=== PATIENT | female | born 1995 | race African-American/Black ===

== ENCOUNTER 2017-12-28 20:37 | Emergency (ER) | payer BC ==
[~2017-12-28] VITALS: Ht 160 cm; Wt 61.2 kg
[2017-12-28 20:46] VITALS: Ht 160 cm; Wt 61.2 kg
[2017-12-28] MEDS ORDERED: ALBUT/IPRATROP 3MG/0.5MG NEB 3 ML VIAL INH STA (21:45)
[2017-12-28 22:28] LABS: INFLUENZA B ANTIGEN Neg for Influ B (NEG)
--- NOTE | 2017-12-28 22:37 | DIAGNOSTIC IMAGING REPORT ---
CHEST 2 VIEWS ROUTINE HISTORY: cough, illness COMPARISON: None. FINDINGS: The lungs are clear. Cardiac silhouette is normal in size. No pleural effusions. No pneumothorax. IMPRESSION: No acute process. Electronically signed by: Aki Montez M.D. 12/28/2017 10:36 PM Dictated Date/Time: 12/28/2017 10:35 PM
[2017-12-28 22:53] VITALS: TEMP 36.8
--- NOTE | 2017-12-28 22:56 | EMERGENCY ROOM VISIT NOTE ---
History First contact with patient: 21:34 Chief Complaint: ILLNESS Stated Complaint: PRESSURE IN HEAD, RUNNY NOSE, COUGH, CONGESTION History of Present Illness The patient is a 22 year old female who presents to the Emergency Room with complaints of cough and nasal congestion. The patient reports that she has had one week of cough and nasal congestion. She reports she had one episode of vomiting last night because her cough was so severe. She reports that she is losing her voice. She reports pressure in her head. She rates her overall discomfort a 5/10. She took NyQuil which did help slightly, but has not been taking anything recently for her symptoms. She did not receive a flu vaccine this year. She denies sore throat, earaches, abdominal pain, nausea or diarrhea. Review of Systems A complete 10 point review of systems was reviewed with the patient with pertinent positives and negatives as per history of present illness. All else were negative. Past Medical/Surgical History Medical Problems: (1) No significant past medical history Surgical Problems: (1) No significant past surgical history Family History Diabetes mellitus Hypertension Social History Smoking Status: Never Smoker Alcohol Use: occasionally Housing Status: lives with roommate Occupation Status: [employer] student Current/Historical Medications No Active Prescriptions or Reported Meds Physical Exam Vital Signs Date Time Temp Pulse Resp B/P (MAP) Pulse Ox O2 Delivery O2 Flow Rate FiO2 12/28/17 23:05 86 16 124/68 99 12/28/17 22:53 36.8 86 16 124/68 99 Room Air 12/28/17 20:46 36.8 90 20 129/73 98 Room Air Physical Exam VITALS: Vitals are noted on the nurse's note and reviewed by myself. Vital signs stable. GENERAL: This is a 22-year-old female, in no acute distress, nondiaphoretic, well-developed well-nourished. SKIN: The skin was without rashes. EARS: External auditory canals clear, tympanic membranes pearly buchanan without erythema or effusion bilaterally. EYES: Pupils equal round and reactive to light and accommodation. NOSE: Patent, turbinates without inflammation or discharge. No sinus tenderness. MOUTH: Mucous membranes moist. Tonsils are not enlarged. Pharynx without erythema or exudate. NECK: Supple without nuchal rigidity. No lymphadenopathy. HEART: Regular rate and rhythm without murmurs gallops or rubs. LUNGS: Clear to auscultation bilaterally without wheezes, rales or rhonchi. No retractions or accessory muscle use. NEURO: Patient was alert and oriented to person place and time. Medical Decision & Procedures ER Provider Diagnostic Interpretation: CHEST 2 VIEWS ROUTINE HISTORY: cough, illness COMPARISON: None. FINDINGS: The lungs are clear. Cardiac silhouette is normal in size. No pleural effusions. No pneumothorax. IMPRESSION: No acute process. Laboratory Results Test 12/28/17 21:55 Influenza Type A Antigen Neg for Influ A (NEG) Influenza Type B Antigen Neg for Influ B (NEG) Medications Administered Medications (Trade) Dose Ordered Sig/Maggie Route Start Time Stop Time Status Last Admin Dose Admin Albuterol/ Ipratropium (Duoneb) 3 ml NOW STAT INH 12/28/17 21:45 12/28/17 21:46 DC 12/28/17 21:57 3 ML Medical Decision Differential diagnosis includes viral URI, influenza, pneumonia, strep pharyngitis, otitis media, among others. The patient was evaluated as above. Chest x-ray was performed and shows no evidence of pneumonia. Influenza testing was negative. She was given a DuoNeb treatment. Patient's vital signs are stable. She likely has a viral upper respiratory infection. Conservative measures were discussed with the patient. She was encouraged to use [id number] medications for symptomatic relief. She will follow-up with [facility] as needed. She verbalized understanding of my assessment and treatment plan and was discharged home in good condition. Medication Reconcilliation Current Medication List: was personally reviewed by nd Blood Pressure Screening Patient's blood pressure: Normal blood pressure Impression Primary Impression: Upper respiratory infection Departure Information Dispostion Home / Self-Care Condition GOOD Prescriptions No Active Prescriptions or Reported Meds Referrals [facility] (PCP) Patient Instructions My [facility] Additional Instructions You should take Sudafed (pseudoephedrine) as directed on the package to help with congestion. This medication is [id number], but you do need to speak to the pharmacist to purchase it. You should use a steroid spray such as Flonase as directed on the package. Use msjq-[id number] cough medications to help with the cough. Be aware that some of these may be too drowsy. Make sure to rest and drink plenty of fluids. Follow-up with [facility] or a primary care provider for recheck. Return to the emergency department with difficulty breathing, coughing up large amounts of phlegm or blood, or any other new/symptoms. Problem Qualifiers Primary Impression: Upper respiratory infection URI type: unspecified URI Qualified Codes: J06.9 - Acute upper respiratory infection, unspecified
[2017-12-28 23:05] VITALS: BP 124/68; PULSE 86; O2SAT 99
== END 2017-12-28 23:05 | disposition home or self-care (01) ==
LOC: C.EDB 20:40 → C.EDC 23:05
DX: J06.9 Acute upper respiratory infection, unspecified (principal); Z82.49 Family history of ischemic heart disease and other diseases of the circulatory system; Z83.3 Family history of diabetes mellitus

== ENCOUNTER 2018-02-26 00:09 | Emergency (ER) | payer BC ==
[~2018-02-26] VITALS: Ht 160 cm; Wt 65.2 kg
[2018-02-26 00:21] VITALS: Ht 160 cm; Wt 65.2 kg
[2018-02-26] MEDS ORDERED: METOCLOPRAMIDE HCL INJ 5 MG/ML 2 ML VIAL IV STA (00:39)
[2018-02-26] MEDS ORDERED: KETOROLAC TROMETHAMINE 30 MG/ML VIAL IV STA (00:39)
[2018-02-26] MEDS ORDERED: SODIUM CHLORIDE 0.9% 1000ML 1,000 ML IV STA (00:39)
[2018-02-26] MEDS ORDERED: DiphenhydrAMINE HCL 50 MG/ML VIAL IV STA (00:39)
[2018-02-26 01:19] VITALS: O2SAT 97
[2018-02-26 01:33] LABS: HEMATOCRIT 39.3 % (37-47); HEMOGLOBIN 13.1 g/dL (12.0-16.0); MEAN CELL VOLUME 85.2 fL (80-100); MEAN CORPUSCULAR HEMOGLOBIN 28.4 pg (25-34); MEAN CORPUSCULAR HGB CONC 33.3 g/dl (32-36); MEAN PLATELET VOLUME 12.1 fL (7.4-10.4); PLATELET COUNT 201 K/uL (130-400); RED CELL DISTRIBUTION WIDTH CV 13.2 % (11.5-14.5); RED CELL DISTRIBUTION WIDTH SD 41.3 fL (36.4-46.3); WHITE BLOOD COUNT 7.83 K/uL (4.8-10.8)
[2018-02-26] MEDS ORDERED: IBUP-1050 PO (01:42)
[2018-02-26 01:47] LABS: ALBUMIN 3.8 gm/dl (3.4-5.0); CREATININE 0.7 mg/dl (0.60-1.20); POTASSIUM 3.9 mmol/L (3.5-5.1)
[2018-02-26 01:58] LABS: TOTAL PROTEIN 7.9 gm/dl (6.4-8.2)
[2018-02-26 02:02] LABS: INFLUENZA B ANTIGEN Neg for Influ B (NEG)
[2018-02-26 02:20] LABS: BASO % 0.4 %; BASO ABS # 0.03 K/uL (0-0.2); EOS % 1.9 %; EOS ABS # 0.15 K/uL (0-0.5); LYMPH % 53.1 %; LYMPH ABS # 4.16 K/uL (1.2-3.4); MONO % 6.9 %; MONO ABS # 0.54 K/uL (0.11-0.59); NEUT % 37.7 %; NEUT ABS # 2.95 K/uL (1.4-6.5)
[2018-02-26 02:21] LABS: MONOSPOT NEG (NEG)
--- NOTE | 2018-02-26 02:37 | EMERGENCY ROOM VISIT NOTE ---
History First contact with patient: 00:27 Chief Complaint: HEADACHE Stated Complaint: HERNANDEZ,NECK PAIN,TIREDNESS,NAUSEA History of Present Illness The patient is a 22 year old female who presents to the Emergency Room with complaints of headache, nausea, fatigue, body aches and cough for the past 3 weeks. Patient saw urgent care 1 week ago was diagnosed with a sinus infection started on amoxicillin. Health services gave her Motrin. No flu shot. No recent travel. Patient is tolerating p.o. fluids but has a lack of appetite. No history of mono. No recent sick contacts. Patient denies chest pain, dyspnea, neck stiffness, abdominal pain, vomiting, diarrhea, productive cough, sinus pain and congestion, earache. Review of Systems An 10 system review of systems was completed with positives and pertinent negatives listed in the HPI. Past Medical/Surgical History Medical Problems: (1) No significant past medical history Surgical Problems: (1) No significant past surgical history Family History Diabetes mellitus Hypertension Social History Smoking Status: Never Smoker Alcohol Use: occasionally Housing Status: lives with roommate Occupation Status: [employer] student Current/Historical Medications Scheduled PRN Ibuprofen (Advil), 400-600 MG PO Q6H PRN for Pain Physical Exam Vital Signs Date Time Temp Pulse Resp B/P (MAP) Pulse Ox O2 Delivery O2 Flow Rate FiO2 02/26/18 01:35 70 18 118/76 97 Room Air 02/26/18 01:34 66 02/26/18 01:19 97 Room Air 02/26/18 01:19 97 Room Air 02/26/18 00:21 37.0 79 18 137/88 99 Room Air Physical Exam VITALS: Vitals are noted on the nurse's note and reviewed by myself. Vital signs stable. GENERAL: Pleasant female, in no acute distress, nondiaphoretic, well-developed well-nourished. SKIN: The skin was without rashes, erythema, edema, or bruising. There is no tenting of the skin. Capillary reflex less than 2 seconds. HEAD: Normocephalic atraumatic. EARS: External auditory canals clear, tympanic membranes pearly buchanan without erythema or effusion bilaterally. EYES: Pupils equal round and reactive to light and accommodation. Conjunctivae without injection, sclerae without icterus. Extraocular movements intact. NOSE: Patent, turbinates without inflammation or discharge. No sinus tenderness. MOUTH: Mucous membranes moist. Pharynx without erythema or exudate. Uvula midline. Airway patent. Tongue does not deviate. NECK: Supple without nuchal rigidity. Shotty anterior and posterior lymphadenopathy. No thyromegaly. Cervical spine is nontender. No JVD. No meningeal signs HEART: Regular rate and rhythm without murmurs gallops or rubs. LUNGS: Clear to auscultation bilaterally without wheezes, rales or rhonchi. No retractions or accessory muscle use. ABDOMEN: Positive bowel sounds x 4. Normal tympanic percussion. Soft, nontender, without masses or organomegaly. Carranza sign negative. No guarding or rebound tenderness. No CVA tenderness MUSCULOSKELETAL: No muscle atrophy, erythema, or edema noted. NEURO: Patient was alert and oriented to person place and time. Normal sensation to light and sharp touch. No focal neurological deficits. Medical Decision & Procedures Laboratory Results 02/26/18 01:10 Red Blood Count 4.61, Mean Corpuscular Volume 85.2, Mean Corpuscular Hemoglobin 28.4, Mean Corpuscular Hemoglobin Concent 33.3, Mean Platelet Volume 12.1, Neutrophils (%) (Auto) 37.7, Lymphocytes (%) (Auto) 53.1, Monocytes (%) (Auto) 6.9, Eosinophils (%) (Auto) 1.9, Basophils (%) (Auto) 0.4, Neutrophils # (Auto) 2.95, Lymphocytes # (Auto) 4.16, Monocytes # (Auto) 0.54, Eosinophils # (Auto) 0.15, Basophils # (Auto) 0.03 02/26/18 01:10 Test 02/26/18 01:10 02/26/18 01:12 White Blood Count 7.83 K/uL (4.8-10.8) Red Blood Count 4.61 M/uL (4.2-5.4) Hemoglobin 13.1 g/dL (12.0-16.0) Hematocrit 39.3 % (37-47) Mean Corpuscular Volume 85.2 fL (80-100) Mean Corpuscular Hemoglobin 28.4 pg (25-34) Mean Corpuscular Hemoglobin Concent 33.3 g/dl (32-36) Platelet Count 201 K/uL (130-400) Mean Platelet Volume 12.1 fL (7.4-10.4) Neutrophils (%) (Auto) 37.7 % Lymphocytes (%) (Auto) 53.1 % Monocytes (%) (Auto) 6.9 % Eosinophils (%) (Auto) 1.9 % Basophils (%) (Auto) 0.4 % Neutrophils # (Auto) 2.95 K/uL (1.4-6.5) Lymphocytes # (Auto) 4.16 K/uL (1.2-3.4) Monocytes # (Auto) 0.54 K/uL (0.11-0.59) Eosinophils # (Auto) 0.15 K/uL (0-0.5) Basophils # (Auto) 0.03 K/uL (0-0.2) RDW Standard Deviation 41.3 fL (36.4-46.3) RDW Coefficient of Variation 13.2 % (11.5-14.5) Immature Granulocyte % (Auto) 0.0 % Immature Granulocyte # (Auto) 0.00 K/uL (0.00-0.02) Large Platelets 1+ Anion Gap 8.0 mmol/L (3-11) Est Creatinine Clear Calc Drug Dose 115.4 ml/min Estimated GFR () 143.5 Estimated GFR (Non- 123.9 BUN/Creatinine Ratio 18.8 (10-20) Calcium Level 9.0 mg/dl (8.5-10.1) Magnesium Level 1.9 mg/dl (1.8-2.4) Total Bilirubin 0.5 mg/dl (0.2-1) Direct Bilirubin 0.1 mg/dl (0-0.2) Aspartate Amino Transf (AST/SGOT) 22 U/L (15-37) Alanine Aminotransferase (ALT/SGPT) 37 U/L (12-78) Alkaline Phosphatase 55 U/L (45-117) Total Protein 7.9 gm/dl (6.4-8.2) Albumin 3.8 gm/dl (3.4-5.0) Thyroid Stimulating Hormone (TSH) 1.720 uIu/ml (0.300-4.500) Human Chorionic Gonadotropin, Qual NEG (NEG) Monoscreen NEG (NEG) Influenza Type A Antigen Neg for Influ A (NEG) Influenza Type B Antigen Neg for Influ B (NEG) Medications Administered Medications (Trade) Dose Ordered Sig/Maggie Route Start Time Stop Time Status Last Admin Dose Admin Sodium Chloride 1,000 ml @ 999 mls/hr Q1H1M STAT IV 02/26/18 00:39 02/26/18 01:39 DC 02/26/18 01:13 999 MLS/HR Ketorolac Tromethamine (Toradol Inj) 15 mg NOW STAT IV 02/26/18 00:39 02/26/18 00:41 DC 02/26/18 01:14 15 MG Metoclopramide HCl (Reglan Inj) 10 mg NOW STAT IV 02/26/18 00:39 02/26/18 00:41 DC 02/26/18 01:13 10 MG Diphenhydramine HCl (Benadryl Inj) 12.5 mg NOW STAT IV 02/26/18 00:39 02/26/18 00:41 DC 02/26/18 01:14 12.5 MG ED Course Prior records/ancillary studies reviewed and summarized above. Nursing notes reviewed. The patient's history was concerning for headache, fatigue, body aches. Differential diagnosis: Etiologies such as mono, metabolic, infection, hypo/hyperglycemia, electrolyte abnormalities, cardiac sources, intracerebral event, toxicologic, neurologic, as well as others were entertained. Physical examination: As above. ER treatment provided: IV Lock IV fluids, Toradol, Reglan, Benadryl On reassessment the patient felt better. Diagnostics interpretation by me: The labs revealed no worsening leukocytosis or electrolyte abnormality. Negative flu. Negative Monospot Imaging studies: Chest x-ray with no acute consolidation, pneumothorax free of my interpretation Exam and history seem consistent with headache and fatigue. Patient is neurovascularly and neurologically intact. She is well-appearing. No signs of meningitis. She is advised to rest, stay well-hydrated and to take medications as directed. She is advised to follow-up with health services in a few days here in the ER sooner for high fevers, lethargy, neck stiffness, worsening signs or symptoms or as needed. By the evaluation outlined above emergent etiologies such as infection, electrolyte abnormalities, cardiac sources, intracerebral event, toxologic, neurologic, abnormalities blood glucose, metabolic, as well as others were deemed relatively unlikely. The pt informed about the findings as listed above. All questions were answered and pleased with the treatment. Return instructions were outlined and the patient was discharged in stable condition. Referral: The patient was referred back to [facility]/primary care physician for follow-up in 2 to 3 days for a recheck of the current condition. The chart was completed utilizing [employer] voice recognition software. Grammatical errors, random word insertions, pronoun errors, and incomplete sentences are an occassional consequence of this system due to software limitations, ambient noise, and hardware issues. Any formal questions or concerns about the content, text, or information contained within the body of this dictation should be directly addressed to the physician records management assistant for clarification. Case reviewed with my attending Medical Decision as above Medication Reconcilliation Current Medication List: was personally reviewed by me Blood Pressure Screening Patient's blood pressure: Normal blood pressure Impression Primary Impression: Headache Additional Impression: Fatigue Departure Information Dispostion Home / Self-Care Condition GOOD Referrals [facility] (PCP) Patient Instructions My [facility] Additional Instructions Acetaminophen(Tylenol) may be used for fever or pain. Use 1000mg every six hours as needed. Avoid using more than 3000mg in a 24 hour period. (AND/OR) Ibuprofen(Motrin, Advil) may be used for fever or pain. Use 600mg every six hours as needed. Take with food. Avoid using more than 2400mg in a 24 hour period. Do not use 2400mg per day for more than three consecutive days without physician direction. Prolonged inappropriate use can lead to stomach upset or ulcers. Afrin nasal spray: 2-3 sprays to each nostril twice daily as needed for congestion. Do not use for more than 3-4 days because it can lead to worsening rebound congestion. Pseudoephedrine(Sudaphed): 30-60mg every 6 hours as needed for nasal congestion. Do not take this with other stimulant products or supplements. Rest and drink plenty of fluids. Controlling your fever with Tylenol and Ibuprofen as above will make you feel better. Wash your hands after nose blowing, sneezing, or coughing. Most germs are spread through contact, therefore improper hygiene may result in your close contacts and loved ones becoming ill just like you. Continue current medications. Return to the ER for severe headache, neck stiffness, chest pain, difficulty breathing, fevers, vomiting, worsening of your condition, or as needed. Follow up with your primary physician/[facility] this week for a recheck of your current condition. Problem Qualifiers Primary Impression: Headache Headache type: unspecified Headache chronicity pattern: unspecified pattern Intractability: not intractable Qualified Codes: R51 - Headache
[2018-02-26 02:46] VITALS: BP 117/72; PULSE 68; TEMP 36.8; O2SAT 98
--- NOTE | 2018-02-26 07:23 | DIAGNOSTIC IMAGING REPORT ---
CHEST 2 VIEWS ROUTINE CLINICAL HISTORY: cough COMPARISON STUDY: 12/28/2017 FINDINGS: The cardiac and mediastinal contours are normal. There is no evidence of focal pulmonary consolidation. There is no evidence of failure. No pleural effusions are visualized.[ IMPRESSION: No active disease in the chest. Electronically signed by: Barry Marie M.D. 02/26/2018 7:22 AM Dictated Date/Time: 02/26/2018 7:22 AM
== END 2018-02-26 02:50 | disposition home or self-care (01) ==
LOC: C.EDB 00:10
DX: R51 Headache (principal); R53.83 Other fatigue; R11.0 Nausea; R05 Cough; R52 Pain, unspecified; Z83.3 Family history of diabetes mellitus; Z82.49 Family history of ischemic heart disease and other diseases of the circulatory system